=== PATIENT | male | born 1945 | race Caucasian/White ===

== ENCOUNTER → 2017-03-08 18:07 | Outpatient (CLI) | payer MEDICARE ==
[2017-03-08 21:40] LABS: CHOL - HDL RATIO 2.2 ratio (2.3-4.9)
== END | disposition home or self-care (01) ==
LOC: D.LABREF 18:07
PROVIDERS: Internal Medicine Cardiovascular Disease
DX: R07.9 Chest pain, unspecified (principal); R00.2 Palpitations; R00.8 Other abnormalities of heart beat

== ENCOUNTER → 2017-03-09 08:34 | Outpatient (CLI) | payer OTHER ==
--- NOTE | ~2017-03-09 | EC ---
PATIENT:MILTON CABRERA JR DATE OF SERVICE: 03/09/17 SEX: M MEDICAL RECORD: [id number] DATE OF : 47 LOCATION:[facility] AGE OF PATIENT: 72 ADMISSION DATE: 03/09/17 REFERRING PHYSICIAN: INTERPRETING PHYSICIAN: BELA KIMBALL MD ECHOCARDIOGRAM REPORT ECHO CHARGES 4 ECHO COMPLETE CLINICAL DIAGNOSIS: CP/PALPITATIONS ECHOCARDIOGRAPHIC MEASUREMENTS (adult normal given) AC root (d.<3.7cm) 2.9 cm LV Septum d (<1.2 cm> 1.4 cm Valve Excursion 1.8 cm LV Septum (systole) 1.9 cm Left Atria (s.<4.0cm> 3.9 cm LVPW d(<1.2cm) 1.1 cm RV (d.<2.3cm) 2.7 cm LVPW (sytole) 1.9 cm LV diastole(<5.6CM) 5.0 cm MV E-F(>70mm/sec) cm LV systole 2.8 cm LVOT Diameter 2.1 cm MV exc.(>10mm) cm Est.ejection fraction (50-75%) % Pericardial Effusion N DOPPLER: LVIT cm/sec A 90.0 cm/sec E 59.0 cm/sec LA cm/sec RVSP 39.3 mmHg LVOT 66.0 cm/sec AOP1/2T m/s Asc. Ao 122 cm/sec RVOT 55.0 cm/sec RA cm/sec PA 112 cm/sec AV Gradient Peak 5.9 mmHg AV Mean 3.1 mmHg AV Area 2.0 cm MV Gradient Peak 3.4 mmHg MV Mean 1.1 mmHg MV Area cm COMMENTS: Evaporator Helper: Mike MOODYOE Hand Splitter: Nida Kimball TAPE# PACS DATE OF SERVICE: 03/09/2017 PROCEDURE: Transthoracic echocardiogram. FINDINGS: 1. The left ventricle shows moderate concentric left ventricular hypertrophy. The inflow characteristics are consistent with diastolic dysfunction. Overall, ejection fraction is normal at 55%. There are no obvious regional wall motion abnormalities. 2. The right ventricle is mildly dilated with normal function. ECHOCARDIOGRAM REPORT [id number] MILTON CABRERA JR 3. The left atrium is normal size, normal function. 4. The aortic valve has trace to mild aortic insufficiency, otherwise structurally normal. 5. The mitral valve has trace mitral regurgitation. 6. Tricuspid valve has mild tricuspid regurgitation. The RVSP is 39 mmHg. 7. There is no pericardial effusion. 8. The pulmonic valve is grossly normal. 9. The right atrium is shown to be mildly dilated. CONCLUSIONS: The patient has evidence of hypertensive heart disease with diastolic dysfunction and mild aortic insufficiency. TRANSINT:[id number] Voice Confirmation ID: [id number] DOCUMENT ID: [id number] BELA KIMBALL MD at 1020 CC: [id number] DICTATION DATE: 03/12/17 112 MANAGER WIRELESS: 03/12/17 1357 DEP CLI 03/09/17 [facility] [address] [place] [address]
== END | disposition home or self-care (01) ==
LOC: D.ECHO 08:34
DX: R00.2 Palpitations (principal); R07.9 Chest pain, unspecified

== ENCOUNTER → 2019-01-24 12:59 | Outpatient (CLI) | payer MEDICARE | END | disposition home or self-care (01) | LOC: D.US 12:59 | PROVIDERS: ATTEND Urology | DX: N45.1 Epididymitis (principal) ==

== ENCOUNTER 2020-05-20 11:18 | Day surgery (SDC) | payer MEDICARE ==
[~2020-05-20] VITALS: Ht 167.6 cm; Wt 77.7 kg
--- NOTE | ~2020-05-20 | HEMODYNAMI ---
PATIENT:MILTON CABRERA JR MEDICAL RECORD: [id number] : 47 LOCATION:[facility] ADMISSION DATE: 05/20/20 Generatedon:113:19 Patient name: MILTON CABRERA Patient #: [id number] : 1945 Date of study: 05/20/2020 Page: Of Hemodynamic Procedure Report Patient Data Patient Demographics Procedure consent was obtained First Name: MILTON Gender: Male Last Name: DEBORAH Suffix: Jr Coughlin Initial: HARI : 1945 Patient #: [id number] Age: 75 year(s) Race: SSN: [id number] Additional ID: [id number] Contact details [address]: [address] [place] [address] State: [place] City: [place] Zip code: [address] Admission Admission Data Admission Date: 05/20/2020 Admission Time: 11:18 Arrival Date: 05/20/2020 Arrival Time: 13:00 Admit Source: Other Insurance Payor: Private health insurance [facility] #: [id number] Height (in.): 65.75 BSA: 1.86 (m2) Height (cm.): 167 BMI: 27.61 (kg/m2) Weight (lbs.): 169.76 Weight (kg.): 77 Lab Results Lab Result Date: 05/20/2020 Lab Result Time: 0:00 Biochemistry Name Units Result Min Max BUN mg/dl 16 --(---*)-- 7 18 Creatinine mg/dl 1 --(--*-)-- 0.6 1.3 CBC Name Units Result Min Max Hemoglobin g/dl 14.4 --(*---)-- 13.5 17.5 Procedure Procedure Types Cath Procedure Diagnostic Procedure LHC LHC w/Coronaries Sedation Charges Moderate Sedation 10-24 minutes Procedure Description Procedure Date Procedure Date: 05/20/2020 Procedure Start Time: 13:04 Procedure End Time: 13:16 Procedure Staff Name Function Carla Florez MD Ordering physician Ricky Pool MD Performing Physician Sherie Robison RT Monitor Jamia White RT Scrub Maximiliano You RN Nurse Procedure Data Cath Procedure Fluoroscopy Diagnostic fluoroscopy Total fluoroscopy Time: 4.5 time: 4.5 min min Diagnostic fluoroscopy Total fluoroscopy dose: 652 dose: 652 mGy mGy Contrast Material Contrast Material Type Amount (ml) Isovue 300 62 Entry Location Entry Primary Successful Side Size Upsize Upsize Entry Closure Choi ccessful Closure Location (Fr) 1 (Fr) 2 (Fr) Remarks Device Remarks Radial Right 6 Fr Mechanical artery Short Compression Estimated blood loss: 5 ml Diagnostic catheters Device Type Used For End Catheter Placement DIAGNOSTIC Imperial 110cm 5 Multi-vessel Fr catheter ([id number]) Angiography DIAGNOSTIC JL 3.5 5Fr Left Coronary catheter ([id number]) Angiography Procedure Complications No complications Procedure Medications Medication Administration Route Dosage 0.9% NaCl I.V. 100 ml/hr Oxygen etCO2 Nasal cannula 2 l/min Heparin Flush Bag added to field 2 bags (1000units/500ml NS) Lidocaine 2% added to field 20 Radial Cocktail added to field 1 syringe (Verapamil 2mg/Nitro 400mcg/Heparin 1500units) Versed I.V. 2 mg Fentanyl I.V. 100 mcg Radial Cocktail I.A. 1 syringe (Verapamil 2mg/Nitro 400mcg/Heparin 1500units) Versed I.V. 2 mg Hemodynamics Rest BSA: 1.86 (m2) HGB: 14.4 (g/dl) O2 Consumption: Estimated: 215.48 (ml/min) O2 Co nsumption indexed: Estimated:115.85 (ml/min/m) Heart Rate: 72 (bpm) Pressure Samples Time Site Value (mmHg) Purpose Heart Use Rate(bpm) 13:07 LV 102/1,8 Snapshot 80 13:07 AO 125/80(101) Pullback 82 13:07 LV 128/12,12 Pullback 82 Gradients Valve Time Site 1 Site 2 Mean SEP/DFP Peak To Heart Use (mmHg) (sec/min) Peak Rate (mmHg) (bpm) Aortic 13:07 LV AO 6 15 3 82 128/12,12 125/80(101) Calculations Valve P-P Mean Valve Index Valve Source Name Gradient Area Flow (cm2) Aortic 3 6 3 6 Snapshots Pre Cath Intra NCS Post Cath Vital Signs Time Heart Resp SPO2 etCO2 NIBP (mmHg) Rhythm Pain Sedation Rate (ipm) (%) (mmHg) Status Level (bpm) 12:56:50 77 15 99 35 143/90(125) NSR 0 (11) 10(A) , No pain 13:01:06 75 15 97 37.2 140/80(105) NSR 0 (11) 10(A) , No pain 13:05:20 71 10 96 38.7 140/83(105) NSR 0 (11) 10(A) , No pain 13:09:36 80 10 93 8.9 116/69(89) NSR 0 (11) 10(A) , No pain 13:13:43 74 14 94 10.4 117/70(93) NSR 0 (11) 10(A) , No pain Medications Time Medication Route Dose Verified Delivered Reason Notes Effectiveness by by 12:55:12 0.9% NaCl I.V. 100 Maximiliano Maximiliano Per ml/hr Avelino You physician RN RN 12:55:26 Oxygen etCO2 2 l/min Maximiliano Maximiliano for low 02 Nasal Lorigan Lorigan sats cannula RN RN 12:55:36 Heparin Flush added 2 bags Maximiliano Maximiliano used for Bag to Avelino You procedure (1000units/500ml [facility] RN RN NS) 12:55:47 Lidocaine 2% added 20ml Maximiliano Maximiliano for local to vial Lorigan Roslynigan anesthetic RN RN 12:55:57 Radial Cocktail added 1 Maximiliano Maximiliano used for (Verapamil to syringe Lorigan Lorigan procedure 2mg/Nitro RN RN 400mcg/Heparin 1500units) 13:04:17 Versed I.V. 2 mg Maximiliano Maximiliano for sedation Avelino You RN RN 13:04:23 Fentanyl I.V. 100 mcg Maximiliano Maximiliano for sedation Avelino You RN RN 13:06:12 Radial Cocktail I.A. 1 Maximiliano Ricky for (Verapamil syringe Lorigan Corine vasodilation 2mg/Nitro ELENA GUTIERREZ 400mcg/Heparin 1500units) 13:06:28 Versed I.V. 2 mg Maximiliano Maximiliano for sedation Avelino You RN third cook Log Time Note 12:35:35 Informed consent obtained and on chart 12:35:40 Diagnostic Cath Status : Elective 12:37:15 Arrival Date: 05/20/2020 1:00:00 PM 12:37:29 Admit Source: Other 12:37:37 Insurance Payor : Private health insurance 12:39:05 Procedure Status Elective Heart Cath (OP). 12:39:07 Ricky Pool MD sent for patient. Start room use. 12:39:08 Time tracking: Regular hours (M-F 7:00 - 5:00) 12:39:14 Plan of Care:Hemodynamics will remain stable., Cardiac rhythm will remain stable., Comfort level will be maintained., Respiratory function will remain adequate., Patient/ family verbilizes understanding of procedure., Procedure tolerated without complication., Recovers from procedure without complications.. 12:55:12 0.9% NaCl 100 ml/hr I.V. was administered by Maximiliano You RN; Per physician; Verbal order read back and verified. 12:55:26 Oxygen 2 l/min etCO2 Nasal cannula was administered by Maximiliano You RN; for low 02 sats; Verbal order read back and verified. 12:55:36 Heparin Flush Bag (1000units/500ml NS) 2 bags added to field was administered by Maximiliano You RN; used for procedure; Verbal order read back and verified. 12:55:37 Patient received from Pre/Post Procedure Room to [facility] 2 Alert and oriented. Tansferred to table in Supine position. 12:55:37 Warm blankets applied, and cameron hugger turned on for patient comfort. 12:55:38 Warm blankets applied, and cameron hugger turned on for patient comfort. 12:55:39 Correct patient and procedure confirmed by team. 12:55:39 ECG and BP/O2 sat monitors applied to patient. 12:55:40 Vital chart was started 12:55:41 Baseline sample Acquired. 12:55:44 Rhythm: sinus rhythm 12:55:46 Full Disclosure recording started 12:55:47 Lidocaine 2% 20ml vial added to field was administered by Maximiliano You RN; for local anesthetic; Verbal order read back and verified. 12:55:50 H&P Date Dictated: 05/20/2020 Within 30 days and on chart., H&P Addendum completed by physician on day of procedure. (MUST COMPLETE FOR ALL OUTPATIENTS). 12:55:51 Pre-procedure instructions explained to patient. 12:55:51 Pre-op teaching completed and patient verbalized understanding. 12:55:54 Family in patients room. 12:55:55 Patient NPO since Midnight. 12:55:57 Radial Cocktail (Verapamil 2mg/Nitro 400mcg/Heparin 1500units) 1 syringe added to field was administered by Maximiliano You RN; used for procedure; Verbal order read back and verified. 12:55:57 Is the patient allergic to Iodine/contrast media? No. 12:55:58 Was the patient premedicated? No 12:55:58 Is patient on blood thinner?No 12:56:00 Patient diabetic? No. 12:56:02 Previous problem with sedation/anesthesia? No ? 12:56:04 Snore? Yes 12:56:05 Sleep apnea? No 12:56:07 Deviated septum? No 12:56:09 Opens mouth fully? Yes 12:56:10 Sticks out tongue? Yes 12:56:15 Airway obstruction? No ? 12:56:18 Dentures? No ? 12:56:22 Pre procedure: right dorsailis pedis pulse 2+ Normal; easily identifiable; not easily obliterated 12:56:25 Pre procedure: left dorsailis pedis pulse 2+ Normal; easily identifiable; not easily obliterated 12:56:27 Patient pain scale 0/10 ?. 12:56:30 Modified Adi's test Radial < 7 seconds 12:56:38 IV patent on arrival in left forearm with 0.9% NaCl at O. 12:56:41 Lab results completed and on chart. 12:56:46 Stress Test: yes; normal ? 12:56:50 Right Radial & Right Groin area was prepped with chlora-prep and draped in sterile fashion 12:56:51 Alarms reviewed by R. N. 12:56:51 Sharps counted by scrub and verified by R.N. 12:56:52 Physician arrived 12:56:53 --------ALL STOP TIME OUT------ 12:56:53 Final Timeout: patient, procedure, and site verified with staff and physician. All members of the team are in agreement. 12:56:57 Right Radial & Right Groin site verified by team. 12:57:00 Fire Safety Assessment: A--An alcohol-based skin anteseptic being used preoperatively., C--Open oxygen or nitrous oxide is being used., D--An ESU, laser, or fiber-optic light is being used. 12:57:03 Physical assessment completed. ASA score P 2 - A patient with mild systemic disease as per Ricky Pool MD. 12:57:47 2) 60-89 Mildly reduced kidney function, and other findings (as for stage 1) point to kidney disease. 12:58:34 Maximum allowable contrast dose (3.7 X eGFR X 0.75)216 ml. 12:58:39 Sedation plan: IV Moderate Sedation Medication:Versed, Fentanyl 12:58:42 Use device set Radial Dx or PCI 12:58:43 ACIST Syringe (00694) opened to sterile field. 12:58:43 Medline Cath Pack ([id number]) opened to sterile field. 12:58:43 Bag Decanter (2002S) opened to sterile field. 12:58:44 ACIST Hand Control (20745) opened to sterile field. 12:58:44 ACIST Manifold (76369) opened to sterile field. 12:58:45 Tegaderm 4 x 4 (1626W) opened to sterile field. 12:58:47 EMERALD Guide Wire (374-558) opened to sterile field. 12:58:48 SHEATH 6FR RAIN (2463395) opened to sterile field. 13:01:45 Patient Height : 65.75 inches 13:01:47 Patient Weight : 169.76 lbs 13:02:06 Lab Result : Hemoglobin 14.4 g/dl 13:02:06 Lab Result : Creatinine 1 mg/dl 13:02:06 Lab Result : BUN 16 mg/dl 13:04:09 Procedure started. 13:04:16 Local anesthetic to right radial artery with Lidocaine 2% by Ricky Pool MD.INITIAL ACCESS ONLY 13:04:17 Versed 2 mg I.V. was administered by Maximiliano You RN; for sedation; Verbal order read back and verified. 13:04:23 Fentanyl 100 mcg I.V. was administered by Maximiliano You RN; for sedation; Verbal order read back and verified. 13:04:26 A 6 Fr Short sheath was inserted into the Right Radial artery 13:05:30 A DIAGNOSTIC Imperial 110cm 5 Fr catheter (433409) was advanced over the wire and used for Multi-vessel Angiography. 13:06:00 Zero performed for pressure channel P1 13:06:12 Radial Cocktail (Verapamil 2mg/Nitro 400mcg/Heparin 1500units) 1 syringe I.A. was administered by Ricky Pool MD; for vasodilation; Verbal order read back and verified. 13:06:28 Versed 2 mg I.V. was administered by Maximiliano You RN; for sedation; Verbal order read back and verified. 13:06:28 Zero performed for pressure channel P1 13:07:28 LV hemodynamics recorded. 13:07:29 LV gram done using BETH 13:07:31 Injector settings: Ml/sec: 5, Volume: 15, 13:07:41 EF : 55 % 13:08:14 RCA angiography performed. 13:08:17 Injector settings: Ml/sec: 3, Volume: 6, 13:08:44 Catheter removed. 13:08:48 MBrace Wrist Support ([id number]) opened to sterile field. 13:10:40 A DIAGNOSTIC JL 3.5 5Fr catheter (414236I) was advanced over the wire and used for Left Coronary Angiography. 13:12:07 Catheter removed. unable to cannulate vessel. 13:13:12 GUIDE 5FR EBU 3.5 catheter ([id number]) opened to sterile field. 13:13:26 5 Fr ebu 3.5 guide catheter was inserted over the wire 13:13:51 LCA angiography performed. 13:13:53 Injector settings: Ml/sec: 3, Volume: 6, 13:14:33 Catheter removed. 13:14:36 ZEPHYR REGULAR TR BAND (593367) opened to sterile field. 13:15:17 Sheath removed intact; hemostasis achieved with Mechanical Compression to the Right Radial artery. 13:15:19 Procedure ended.(Physican Out) 13:15:27 Fluoroscopy time 04.50 minutes. 13:15:31 Fluoroscopy dose: 652 mGy 13:15:31 Flurop Dose total: 652 13:15:36 Dose Area Product 00370 mGy/cm. 13:15:40 Contrast amount:Isovue 300 62ml. 13:15:41 Maximum allowable dose exceeded? No. 13:15:42 Sharps counted by scrub and verified by R.N. 13:15:45 Dexter band inflated with 12cc of air. 13:15:46 Insertion/operative site no bleeding no hematoma. 13:15:53 Post right radial artery:stable 13:16:03 Post Procedure Pulses reassessed and unchanged 13:16:07 Post procedure rhythm: unchanged. 13:16:09 Estimated blood loss: 5 ml 13:16:10 Post procedure instruction explained to patient.Patient verbalizes understanding. 13:16:11 Patient needs reinforcement of post procedure teaching. 13:16:36 Procedure type changed to Cath procedure, Diagnostic procedure, LHC, [facility] w/Coronaries, Sedation Charges, Moderate Sedation 10-24 minutes 13:16:38 Procedure and supply charges have been captured, reviewed, submitted and are correct. 13:16:42 Procedure Complication : No complications 13:16:44 Vital chart was stopped 13:16:46 [facility] Findings: mild to moderate CAD (<70%) 13:16:48 Operative report dictated upon procedure completion. 13:16:48 See physician's report for complete and final results. 13:16:50 Report given to Pre/Post Procedure Room. 13:16:52 Patient transfered to Pre/Post Procedure Room with Stretcher. 13:16:54 Procedure ended. 13:16:54 Full Disclosure recording stopped 13:17:00 End room use (Document Last) 13:18:47 End room use (Document Last) Device Usage Item Name Manufacture Quantity Catalog Hospital Part Current Minima l Lot# / Number Charge Number Stock Stock Serial# Code ACIST Acist 1 91303 404486 820898 447722 20 Syringe Medical (36099) Systems Inc Medline Medline 1 [id number] 299193 14464 181343 5 Cath Pack ([id number]) Bag Microtek 1 571353 85046 690819 5 Decanter Medical Inc. () ACIST Hand Acist 1 93053 079218 014506 179992 5 Control Medical (61819) Systems Inc ACIST Acist 1 37684 503448 992142 875082 5 Manifold Medical (41292) Systems Inc Tegaderm 4 3M 1 1626W 181211 864846 009034 5 x 4 (1626W) EMERALD Cardinal 1 502-455 874624 184696 366822 5 Guide Wire [facility] (502455) SHEATH 6FR Cardinal 1 9890750 654666 4440944 942214 5 [facility] (8881152) DIAGNOSTIC Terumo 1 08-9684 560635 194956 903783 5 Imperial 110cm 5 Fr catheter (209535) [facility] Advanced 140-0250-00 473835 72042 724369 5 Wrist Vascular Support Dynamics ([id number]) DIAGNOSTIC Cardinal 1 196995P 838886 383165 608228 5 JL 3.5 5Fr Health catheter (910706Y) GUIDE 5FR Medtronic 1 [id number] 669712 216931 170083 1 EBU 3.5 catheter ([id number]) ZEPHYR Cardinal 1 136081 662031 9018628 820293 5 REGULAR TR Health BAND (782903) Signature Audit [place] Stage Time Signature Unsigned Intra-Procedure 05/20/2020 Sherie Robison 1:18:47 PM RT(R) Intra-Procedure 05/20/2020 Maximiliano 1:19:13 PM Avelino RN Intra-Procedure 05/20/2020 Ricky Kessler 1:19:34 PM Usama GUTIERREZ Signatures Performing Physician : Signature : Ricky Pool MD Date : Time : Monitor : Sherie Robison RT Signature : Date : Time : Nurse : Maximiliano You Signature : RN Date : Time : [facility] [address] [place] [address]
[~2020-05-20 11:18] MED LIST: BENICAR20 MG PO; CARDIZEM CD240 MG PO
[2020-05-20] MEDS ORDERED: PROPAFENONE HC225 MG PO (11:48)
[2020-05-20 12:09] VITALS: BP 160/79; Ht 167.6 cm; Wt 77.7 kg
[2020-05-20 12:35] LABS: BASOPHILS 0.6 % (0-2); EOSINOPHILS 1.1 % (0-7); HEMOGLOBIN 14.4 g/dL (13.5-17.5); LYMPHOCYTES 42.9 % (15-50); MCH 31.4 pg (26.0-34.0); MCHC 34.3 g/dL (31.0-37.0); MCV 91.5 fL (80.0-100.0); MEAN PLATELET VOLUME 10.7 fL (7.4-10.4); MONOCYTES 12.9 % (2-11); NEUTROPHIL ABS# 1.49 10x3/uL (1.78-5.38); NEUTROPHILS 42.5 % (40-80); PLATELET COUNT 194 10x3/uL (130-400); RBC 4.59 10x6/uL (4.20-6.10); RDW 12.7 % (11.5-14.5); WBC 3.5 10x3/uL (4.8-10.8)
[2020-05-20 12:48] LABS: ALT (SGPT) 19 U/L (10-68); CALC OSMOLALITY 281 mosm/kg (275-300); CALCIUM 8.5 mg/dL (8.5-10.1); CARBON DIOXIDE 26.2 mmol/L (21.0-32.0); CHLORIDE - SERUM 106 mmol/L (98-107); CHOL - HDL RATIO 1.6 ratio (2.3-4.9); CHOLESTEROL, TOTAL 129 mg/dL (0-200); GLUCOSE 98 mg/dL (74-106); HDL CHOLESTEROL 79 mg/dL (32-96); LDL CHOLESTEROL 25 mg/dL (0-100); LDL-HDL RATIO 0.3 ratio (1.5-3.5); POTASSIUM - SERUM 3.8 mmol/L (3.5-5.1); SODIUM 141 mmol/L (136-145); TRIGLYCERIDE 128 mg/dL (30-200); UREA NITROGEN 16 mg/dL (7-18); eGFR NON AFRICAN AMERICAN 78 mL/min (90-120)
--- NOTE | 2020-05-20 13:30 | NUR ---
PT REC'D TO CLOTHER IN RECOVERY ROOM 4. MONITORS ESTAB, AT BS. SEE POST CATH MANAGER OF PROJECT MANAGEMENT FLOWSHEETS. ALARMS ON AND C/L IN REACH.
--- NOTE | 2020-05-20 13:45 | NUR ---
VSS, R Z BAND SITE C/D/I, NO S/S BLEEDING OR HEMATOMA, PULSES PALP. PT RESTING QUIETLY, NO SIGN OF DISTRESS. AT BS. ALARMS ON AND C/L IN REACH.
--- NOTE | 2020-05-20 14:15 | NUR ---
PT SITTING UP IN BED. TOLERATING WATER, REFUSES SANDWICH AT THIS TIME. R Z BAND C/D/I, NO S/S BLEEDING OR SWELLING. PULSES PALP. CM - SB WITH PACS AND SINUS ARRHYTHMIAS. PT DENIES PAIN OR NEEDS. ALARMS ON AND C/L IN REACH.
--- NOTE | 2020-05-20 14:30 | NUR ---
5 CC AIR REMOVED FROM Z BAND, NO S/S BLEEDING OR SWELLING. PULSES PALP. PT VERBALIZES UNDERSTANDING OF S/S TO REPORT TO NURSE. ALARMS ON AND C/L IN REACH.
--- NOTE | 2020-05-20 14:45 | NUR ---
7CC AIR REMOVED FROM Z BAND, NO S/S BLEEDING OR HEMATOMA. PULSES PALP. VSS.
--- NOTE | 2020-05-20 15:00 | NUR ---
ALL AIR REMOVED FROM Z BAND, NO S/S BLEEDING OR HEMATOMA. PULSES PALP. VSS. CM - SB WITH PACS. PT DENIES PAIN OR NEEDS. ALARMS ON AND C/L IN REACH.
--- NOTE | 2020-05-20 15:20 | NUR ---
PIV D/C'D INTACT, DSG APPLIED. PT ALLOWED UP TO GET DRESSED AND GO TO BR INDEPENDENTLY.
--- NOTE | 2020-05-20 15:28 | NUR ---
ALL DISCHARGE INSTRUCTIONS REVIEWED WITH PT AND HIS , INCLUDING RESTRICTIONS, MEDS AND F/U APPT. BOTH VERBALIZE UNDERSTANDING. ZBAND REMOVED, NO S/S BLEEDING OR HEMATOMA, DSG AND ARM BOARD APPLIED.
--- NOTE | 2020-05-20 15:38 | NUR ---
PT D/C'D VIA WC TO PRIVATE VEHICLE WITH ALL PAPER WORK AND BELONGINGS.
--- NOTE | 2020-05-21 17:14 | OP ---
PATIENT NAME: MILTON CABRERA JR MEDICAL RECORD: [id number] :47 LOCATION:D.CAT ADMISSION DATE: SURGEON: NAJMA SALCIDO MD DATE OF OPERATION: 05/20/2020 PROCEDURE: Left heart catheterization, selective coronary angiography, right radial approach. CATHETERS: Radial sheath and [place] catheter used on EBU catheter, left coronary system. FINDINGS: Left ventriculography in 30-degree BETH view: Normal wall motion and normal systolic function. CORONARY ANATOMY: LEFT MAIN: Left main is free of disease. LAD: Free of disease in diagonal system. CIRCUMFLEX: Free of disease is the marginal system. RIGHT CORONARY: Dominant artery, gives rise to PDA, free of disease. IMPRESSION: Normal systolic function. Normal coronary anatomy. TRANSINT:[id number] Voice Confirmation ID: [id number] DOCUMENT ID: [id number] NAJMA SALCIDO MD at 1714 CC: [id number] DICTATION DATE: 05/20/20 1318 CERTIFIED PEST CONTROL TECHNICIAN: 05/20/20 2137 [facility] 05/20/20 [address] [place] [address]
== END 2020-05-20 15:38 | disposition home or self-care (01) ==
LOC: D.CATH 11:18
PROVIDERS: ATTEND Internal Medicine Interventional Cardiology
DX: R94.31 Abnormal electrocardiogram [ECG] [EKG] (principal); I20.9 Angina pectoris, unspecified; I10 Essential (primary) hypertension; E78.5 Hyperlipidemia, unspecified